=== PATIENT | female | born 1980 | race Caucasian/White ===

== ENCOUNTER 2018-10-08 01:18 | Emergency (ER) | payer OTHER, BC ==
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
[2018-10-08 01:58] VITALS: BP 120/90
== END 2018-10-08 02:03 | disposition home or self-care (01) ==
DX: R07.89 Other chest pain (principal); V49.49XA Driver injured in collision with other motor vehicles in traffic accident, initial encounter; Y92.410 Unspecified street and highway as the place of occurrence of the external cause